=== PATIENT | male | born 1985 | race Caucasian/White ===

== ENCOUNTER 2019-04-30 13:50 | Emergency (ER) | payer OTHER ==
[2019-04-30] MEDS ORDERED: Zofran 4 MG/2 ML VIAL IV ONE (14:08)
[2019-04-30] MEDS ORDERED: MORPHINE SULFATE 4 MG INJ IV ONE (14:08)
[2019-04-30 14:10] VITALS: PULSE 83; O2SAT 98
[2019-04-30] MEDS ORDERED: Zofran 4 MG/2 ML VIAL ONE (14:13)
[2019-04-30] MEDS ORDERED: MORPHINE SULFATE 4 MG INJ ONE (14:14)
--- NOTE | 2019-04-30 14:15 | ERPHSYRPT ---
- History of Present Illness Time Seen by Provider: 04/30/19 14:08 Source: patient Exam Limitations: no limitations Patient Subjective Stated Complaint: states was working at [employer] today and got right lower leg caught between two logs. pain to right lower leg. Triage Nursing Assessment: to room per w/c. skin w/d, color normal, resp easy. noted moderate swelling to right lower leg. leg warm, good pedal pulse, good cap refill. Physician History: 33-year-old white male arrives with complaint of pain in his right leg symptoms since 30 minutes patient states his leg was caught between 2 logs sawmill. Patient complains of pain in the right leg he states he was pinched between the 2 logs. Patient has pain with any movement of his foot or ankle located in the right mid leg. Past medical history is negative. Past surgical history is negative. Social history patient denies illicit drug use or problems with drugs Method of Injury: other (right leg caught between 2 logs at work) Occurred: just prior to arrival (30 minutes prior to arri) Quality: constant, aching Severity of Pain-Max: moderate Severity of Pain-Current: moderate Lower Extremities Pain: leg: right Modifying Factors: Improves With: movement (pain worse with movement of ankle or foot pain located at the mid leg) Allergies/Adverse Reactions: No Known Drug Allergies Allergy (Unverified 04/30/19 14:10) Hx Tetanus, Diphtheria Vaccination/Date Given: No Hx Influenza Vaccination/Date Given: No Hx Pneumococcal Vaccination/Date Given: No - Review of Systems Constitutional: No Fever, No Chills Eyes: No Symptoms Ears, Nose, & Throat: No Symptoms Respiratory: No Cough, No Dyspnea Cardiac: No Chest Pain, No Edema, No Syncope Abdominal/Gastrointestinal: No Abdominal Pain, No Nausea, No Vomiting, No Diarrhea Genitourinary Symptoms: No Dysuria Musculoskeletal: Other (Pain right leg) Skin: Other (eecchymosis over right calf) Neurological: No Dizziness, No Focal Weakness, No Sensory Changes Psychological: No Symptoms Endocrine: No Symptoms All Other Systems: Reviewed and Negative - Past Medical History Pertinent Past Medical History: No - Past Surgical History Past Surgical History: No - Social History Smoking Status: Former smoker Exposure to second hand smoke: Yes Drug Use: none Patient Lives Alone: No - Nursing Vital Signs Nursing Vital Signs: Initial Vital Signs Temperature 98.1 F 04/30/19 13:58 Pulse Rate 83 04/30/19 13:58 Respiratory Rate 16 04/30/19 13:58 Blood Pressure 114/67 04/30/19 13:58 O2 Sat by Pulse Oximetry 98 04/30/19 13:58 Pain Scale Pain Intensity 10 - Physical Exam General Appearance: moderate distress, alert Eyes, Ears, Nose, Throat Exam: moist mucous membranes Neck Exam: non-tender, supple Cardiovascular/Respiratory Exam: chest non-tender, normal breath sounds, regular rate/rhythm, no respiratory distress Gastrointestinal/Abdominal Exam: non-tender, guarding Back Exam: normal inspection, No vertebral tenderness Hips Exam: bilateral: non-tender, normal inspection, normal range of motion, no evidence of injury Legs Exam: right leg: bone tenderness (pain right mid leg), ecchymosis ( ecchymosis overlying the right calf), swelling (edema right mid leg), left leg: non-tender, normal inspection, normal range of motion, no evidence of injury Knees Exam: right knee: other (decreased range ofmotion right knee secondary to leg pain), left knee: normal range of motion, bilateral knee: non-tender, normal inspection Ankle Exam: right ankle: other (decreased range of motion right ankle secondary to right leg pain), left ankle: normal range of motion, bilateral ankle: non- tender, normal inspection, no evidence of injury Foot Exam: right foot: other (decreased range of motion right ankle secondary to right leg pain), left foot: normal range of motion, bilateral foot: non- tender, normal inspection Neuro/Tendon Exam: normal sensation, normal motor functions Mental Status Exam: alert, oriented x 3, cooperative Skin Exam: normal color, warm, dry, other (ecchymosis right calf) SpO2 Interpretation: normal (98%) SpO2: 98 - Course Nursing assessment & vital signs reviewed: Yes - Radiology Exams Right Lower Leg X-ray Interpretation: Discussed w/ radiologist, Negative, No Fracture, No Subluxation (no bony, articular, or soft tissue abnormalities.) Ordered Tests: Active Orders 24 hr Category Date Time Status [place] Bandage Application -[facility] STAT Care 04/30/19 14:49 Active Crutches STAT Care 04/30/19 14:49 Active IV Insertion STAT Care 04/30/19 14:08 Active LOWER LEG Stat Exams 04/30/19 14:09 Completed Medication Summary Discontinued Medications Generic Name Dose Route Start Last Admin Trade Name Freq PRN Reason Stop Dose Admin Ketorolac Tromethamine 30 mg 04/30/19 14:52 Toradol 30 Mg Injection IV 04/30/19 14:53 STAT ONE Morphine Sulfate 4 mg 04/30/19 14:08 04/30/19 14:18 Morphine Sulfate 4 Mg Inj IV 04/30/19 14:09 4 mg STAT ONE Administration Morphine Sulfate Confirm 04/30/19 14:14 Morphine Sulfate 4 Mg Inj Administered 04/30/19 14:15 Dose 4 mg .ROUTE .STK-MED ONE Ondansetron HCl 4 mg 04/30/19 14:08 04/30/19 14:18 Zofran 4 Mg/2 Ml Vial IV 04/30/19 14:09 4 mg STAT ONE Administration Ondansetron HCl Confirm 04/30/19 14:13 Zofran 4 Mg/2 Ml Vial Administered 04/30/19 14:14 Dose 4 mg .ROUTE .STK-MED ONE - Progress Progress: improved Progress Note: 04/30/19 14:52 Patient's x-ray right lower leg negative fracture negative subluxation negative soft tissue injury. Patient with minimal ecchymosis over the right calf he does state that he is pain with movement of his right knee or ankle located at the mid leg. Patient was given morphine 4 mg of Zofran 4 mg will give Toradol 60 mg. Will have nurse apply Gomez wrap. Home on crutches. Followup with company physician. [place] for pain. - Departure Departure Disposition: Home Clinical Impression: Right leg pain Crushing injury of right leg Qualifiers: Encounter type: initial encounter Qualified Code(s): S87.81XA - Crushing injury of right lower leg, initial encounter Condition: Fair Critical Care Time: No Additional Instructions: Return home. Ice and elevate right leg 24-48 hours. Crutches weightbearing as tolerated. [place] as prescribed. Followup with your company physician. Return for acute distress or for severe symptoms,. Prescriptions: Hydrocodone/APAP 5-325 Tab^^^ [[place] 5-325 Tablet^^^] 1 each PO Q4HPRN PRN #10 tablet MDD 6 PRN Reason: right leg pain
--- NOTE | 2019-04-30 14:43 | XRAY ---
Indication: Pain following injury. Comparison: None 2 views of the right lower leg obtained. No bony, articular, or soft tissue abnormalities.
[2019-04-30] MEDS ORDERED: TORAdol 30 mg Injection IV ONE (14:52)
[2019-04-30] MEDS ORDERED: TORAdol 30 mg Injection ONE (14:59)
[2019-04-30 15:20] VITALS: BP 110/71
== END 2019-04-30 15:31 | disposition home or self-care (01) ==
LOC: ED 13:50
DX: M79.604 Pain in right leg (principal); S87.81XA Crushing injury of right lower leg, initial encounter
CPT/HCPCS: 36000; 73590; 96374; 96375; 99284; J1885; J2270; J2405